=== PATIENT | female | born 1995 | race Caucasian/White ===

== ENCOUNTER 2018-02-13 08:57 | Emergency (ER) | payer MEDICAID ==
[2018-02-13] MEDS: IBUPROFEN 800 MG TAB PO (09:32)
== END 2018-02-13 11:52 | disposition home or self-care (01) ==
LOC: FTE 08:57
DX: S69.92XA Unspecified injury of left wrist, hand and finger(s), initial encounter (principal); W21.02XA Struck by soccer ball, initial encounter; Y92.322 Soccer field as the place of occurrence of the external cause
CPT/HCPCS: 29130; 73140; 99283-25